=== PATIENT | female | born 1975 | race American Indian/Alaskan Native ===

== ENCOUNTER 2017-01-02 11:48 | Emergency (ER) | payer BC ==
--- NOTE | 2017-01-02 12:22 | Emergency Department Report ---
Chief Complaint: High BP Stated Complaint: HIGH BP Time Seen by Provider: 01/02/17 12:20 - HPI History of Present Illness: PT states she was told today that her BP is elevated. PT states she has no hx of htn - ROS Review of Systems: - headache - chest pain - Exam Vital Signs: Vital Signs 01/02/17 12:13 Temperature 98.8 F Pulse Rate 87 Respiratory 20 Rate Blood Pressure 194/117 O2 Sat by Pulse 99 Oximetry Physical Exam: PT looks well, non toxic gcs 15 moves all extremities well no focal weakness MSE screening note: Focused history and physical exam performed. Due to findings the following was ordered: labs, ekg ED Disposition for MSE Condition: Stable
[2017-01-02 14:47] LABS: Alanine Aminotransferase 17 units/L (7-56); Albumin 3.8 g/dL (3.9-5); Alkaline Phosphatase 59 units/L (35-129); Anion Gap 20 mmol/L; BUN/Creatinine Ratio 20; Blood Urea Nitrogen 12 mg/dL (7-17); Calcium 8.9 mg/dL (8.4-10.2); Carbon Dioxide 21 mmol/L (22-30); Glucose 66 mg/dL (65-100); Potassium 3.6 mmol/L (3.6-5.0); Sodium 138 mmol/L (137-145); Total Protein 7.7 g/dL (6.3-8.2)
[2017-01-02] MEDS ORDERED: CATAPRES ONE (21:21)
[2017-01-02] MEDS ORDERED: CATAPRES PO ONE (21:25)
--- NOTE | 2017-01-02 21:34 | Emergency Department Report ---
HPI - General Chief Complaint: High BP Time Seen by Provider: 01/02/17 12:20 - [facility] HPI: [place] 25 The patient is a 41-year-old female presenting with chief complaint of hypertension. Patient went to the dentist office today to have the procedure performed but before the procedure she was found to be hypertensive at 179/116 subsequently sent to the ED for evaluation. The patient is currently asymptomatic. The patient states she was diagnosed hypertension for 2 years ago but has not taken any medication for the past 2 years secondary to not following up Location: Cardiovascular system Duration: [See above] Quality: Hypertension Severity: 179/116 Modifying factors: [see above] Context: [see above] Mode of transportation: Unknown, there is an adult visitor at bedside ED Past Medical Hx - Past Medical History Previous Medical History?: No - Surgical History Past Surgical History?: Yes Additional Surgical History: TUBAL LIGATION - Family History Family history: no significant - Social History Smoking Status: Never Smoker Substance Use Type: None (denies illicit drug use), Alcohol (occasional) - Medications Home Medications: Home Medications Medication Instructions Recorded Confirmed Last Taken Type Acetic Acid/Hydrocortisone [Vosol 1 - 4 drop OT QID #10 ml 10/05/13 Unknown Rx Hc Ear Drops 2/1%] Amoxicillin/K Clav Tab [Augmentin 1 tab PO Q12H #14 tablet 10/05/13 Unknown Rx 875MG] HYDROcodone/APAP 5-325 [Decker 1 each PO Q6HR PRN #16 tablet 10/05/13 Unknown Rx 5-325 mg TAB] amLODIPine [Norvasc] 5 mg PO DAILY #90 tab 01/02/17 Unknown Rx ED Review of Systems ROS: Stated complaint: HIGH BP Other details as noted in HPI Comment: All other systems reviewed and negative Constitutional: denies: chills, fever Eyes: denies: eye pain, eye discharge, vision change ENT: denies: ear pain, throat pain Respiratory: denies: cough, shortness of breath, wheezing Cardiovascular: other (hypertension). denies: chest pain Endocrine: no symptoms reported Gastrointestinal: denies: abdominal pain, nausea, diarrhea Genitourinary: denies: urgency, dysuria, discharge Musculoskeletal: denies: back pain, joint swelling, arthralgia Skin: denies: rash, lesions Neurological: denies: headache, weakness, paresthesias Psychiatric: denies: anxiety, depression Hematological/Lymphatic: denies: easy bleeding, easy bruising Physical Exam - Physical Exam Vital Signs: Vital Signs 01/02/17 12:13 Temperature 98.8 F Pulse Rate 87 Respiratory 20 Rate Blood Pressure 194/117 O2 Sat by Pulse 99 Oximetry Physical Exam: GENERAL: The patient is well-developed well-nourished female lying on stretcher not appearing to be in acute distress. [] HEENT: Normocephalic. Atraumatic. Extraocular motions are intact. Patient has moist mucous membranes. NECK: Supple. No meningitic signs are noted. Trachea midline CHEST/LUNGS: Clear to auscultation. There is no respiratory distress noted. HEART/CARDIOVASCULAR: Regular. There is no tachycardia. There is no gallop rub or murmur. ABDOMEN: Abdomen is soft, nontender. Patient has normal bowel sounds. There is no abdominal distention. SKIN: There is no rash. There is no edema. There is no diaphoresis. NEURO: The patient is awake, alert, and oriented. The patient is cooperative. The patient has no focal neurologic deficits. The patient has normal speech. Cranial nerves II through XII grossly intact, no drift MUSCULOSKELETAL: There is no evidence of acute injury. ED Course Vital Signs 01/02/17 12:13 Temperature 98.8 F Pulse Rate 87 Respiratory 20 Rate Blood Pressure 194/117 O2 Sat by Pulse 99 Oximetry - Reevaluation(s) Reevaluation #1: 01/02/17 22:36 Blood pressure improved ED Medical Decision Making - Lab Data Result diagrams: 01/02/17 13:35 Laboratory Tests 01/02/17 01/02/17 13:35 13:35 Sodium 138 Potassium 3.6 Chloride 101.0 Carbon Dioxide 21 L Anion Gap 20 BUN 12 Creatinine 0.6 L Estimated GFR > 60 BUN/Creatinine Ratio 20 Glucose 66 Calcium 8.9 Total Bilirubin 0.50 AST 19 ALT 17 Alkaline Phosphatase 59 Total Protein 7.7 Albumin 3.8 L Albumin/Globulin Ratio 1.0 HCG, Qual Negative - EKG Data -: EKG Interpreted by Me EKG shows normal: sinus rhythm Rate: normal - EKG Data When compared to previous EKG there are: previous EKG unavailable Interpretation: nonspecific ST-T wave denys (biphasic T-wave in lead V3) - Differential Diagnosis essential hypertension Critical care attestation.: If time is entered above; I have spent that time in minutes in the direct care of this critically ill patient, excluding procedure time. ED Disposition Clinical Impression: Uncontrolled hypertension Disposition: DC-01 TO HOME OR SELFCARE Is pt being admited?: No Does the pt Need Aspirin: No Condition: Stable Instructions: Hypertension (ED) Additional Instructions: Return to the emergency department immediately should you develop worsening symptoms, fever, inability to tolerate food or liquid or any other concerns. Prescriptions: amLODIPine [Norvasc] 5 mg PO DAILY #90 tab Referrals: DEANGELO ROMAN MD [Staff Physician] - [facility] (Dr. Roman is a primary physician. Please follow-up with him for further evaluation and management of your hypertension and blood pressure medication) [facility] [Outside] - [facility] ([facility] clinic as primary physicians. Please follow with them or the above-referenced Dr. Roman for further management of your hypertension) Time of Disposition: 22:37
[2017-01-02] MEDS ORDERED: LEVAQUIN PO ONE (22:39)
[2017-01-02] MEDS ORDERED: FLAGYL PO ONE (22:39)
[2017-01-02 22:52] VITALS: BP 169/109
== END 2017-01-02 22:56 | disposition home or self-care (01) ==
LOC: ED 11:48
DX: I10 Essential (primary) hypertension (principal)
CPT/HCPCS: 36415; 80053; 84703; 93005; 93010; 99283